=== PATIENT | female | born 1965 | race Two or more races ===

== ENCOUNTER 2018-05-11 13:15 | Emergency (ER) | payer OTHER, SELFPAY ==
[~2018-05-11] VITALS: Ht 152.4 cm; Wt 63.4 kg
[2018-05-11 13:20] VITALS: BP 131/66
[2018-05-11] MEDS ORDERED: IBUPROFEN 200 MG TABLET PO ONE (14:00)
[2018-05-11] MEDS ORDERED: IBUPROFEN 200 MG TABLET ONE (14:11)
== END 2018-05-11 15:03 | disposition home or self-care (01) ==
LOC: ED 15:00
DX: S63.641A Sprain of metacarpophalangeal joint of right thumb, initial encounter (principal); X58.XXXA Exposure to other specified factors, initial encounter; Y93.89 Activity, other specified; Y92.89 Other specified places as the place of occurrence of the external cause; Y99.0 Civilian activity done for income or pay
CPT/HCPCS: 99284